=== PATIENT | male | born 1955 | race Two or more races ===

== ENCOUNTER 2019-01-01 09:43 | Emergency (ER) | payer OTHER ==
--- NOTE | 2019-01-01 10:19 | ER Document Report ---
ED Medical Screen (RME) - General Chief Complaint: Hip Pain Stated Complaint: RIGHT HIP PAIN Time Seen by Provider: 01/01/19 10:14 Mode of Arrival: Ambulatory Information source: Patient Notes: Patient is a 63-year-old male presenting to the emergency department with multiple complaints today. Complaint #1 his right hip pain that has been going on for 3 days after lifting a heavy object. This morning he was outside when the pain became so severe that he "blacked out". He was in a standing position out in his driveway when this occurred so he fell from standing position onto the ground. It is unknown how long he was down. Currently patient is alert, oriented, answering all questions appropriately and is complaining of only pain to his right hip. Patient denies any chest pain or shortness of breath. I have greeted and performed a rapid initial assessment of this patient. A comprehensive ED assessment and evaluation of the patient, analysis of test results and completion of the medical decision making process will be conducted by additional ED providers. I have specifically instructed the patient or family members with the patient to immediately return to any nursing staff should anything change in the patient's condition or with their chief complaint. This medical record was dictated with voice recognizing software. There may be grammatical, syntax errors that are unintended. TRAVEL OUTSIDE OF THE [place] IN LAST 30 DAYS: No Past Medical History - Social History Chew tobacco use (# tins/day): No Frequency of alcohol use: None Drug Abuse: None Physical Exam - Vital signs Vitals: Temp Pulse Resp BP Pulse Ox 97.6 F 63 20 140/81 H 94 01/01/19 09:48 01/01/19 09:48 01/01/19 09:48 01/01/19 09:48 01/01/19 09:48 Course - Vital Signs Vital signs: Temp Pulse Resp BP Pulse Ox 97.6 F 63 20 140/81 H 94 01/01/19 09:48 01/01/19 09:48 01/01/19 09:48 01/01/19 09:48 01/01/19 09:48
[2019-01-01] MEDS ORDERED: FENTANYL CITRATE INJ/PF 100 MCG/2 ML AMPUL IV ONE (10:20)
[2019-01-01 10:37] LABS: ABSOLUTE BASOPHILS # (AUTO) 0.1 10^3/uL (0.0-0.2); ABSOLUTE EOSINOPHILS # (AUTO) 0.1 10^3/uL (0.0-0.6); ABSOLUTE LYMPHOCYTES (AUTO) 0.9 10^3/uL (0.5-4.7); ABSOLUTE MONOCYTES (AUTO) 1.3 10^3/uL (0.1-1.4); ABSOLUTE NEUT (AUTO) 9.7 10^3/uL (1.7-8.2); BASOPHILS % (AUTO) 0.5 % (0-2); EOSINOPHILS % (AUTO) 0.5 % (0-6); HEMOGLOBIN 13.2 g/dL (13.5-17.0); LYMPHOCYTES % (AUTO) 7.5 % (13-45); MEAN CORPUSCULAR HEMOGLOBIN 31.7 pg (27.0-33.4); MEAN CORPUSCULAR HGB CONC 33.9 g/dL (32.0-36.0); MEAN CORPUSCULAR VOLUME 94 fl (80-97); PLATELET COUNT 304 10^3/uL (150-450); RED BLOOD COUNT 4.17 10^6/uL (4.35-5.55); RED CELL DISTRIBUTION WIDTH 13.7 % (11.5-14.0); SEGMENTED NEUTROPHILS % (AUTO) 80.5 % (42-78); TOTAL CELLS COUNTED % (AUTO) 100 %
[2019-01-01 10:53] LABS: ALKALINE PHOSPHATASE 48 U/L (38-126); ANION GAP 8 (5-19); ASPARTATE AMINO TRANSFERASE 23 U/L (17-59); BILIRUBIN,DIRECT 0.1 mg/dL (0.0-0.4); BILIRUBIN,TOTAL 0.8 mg/dL (0.2-1.3); BLOOD UREA NITROGEN 11 mg/dL (7-20); CALCIUM 9.2 mg/dL (8.4-10.2); CARBON DIOXIDE 27 mmol/L (22-30); CHLORIDE 101 mmol/L (98-107); GLUCOSE 109 mg/dL (75-110); POTASSIUM 4.4 mmol/L (3.6-5.0); TOTAL PROTEIN 6.6 g/dL (6.3-8.2)
--- NOTE | 2019-01-01 10:57 | RADIOLOGY REPORT (SQ) ---
EXAM DESCRIPTION: HIP RIGHT AP/LATERAL COMPLETED DATE/TIME: 01/01/2019 10:13 am REASON FOR STUDY: severe pain, unable to bear weight COMPARISON: None. NUMBER OF VIEWS: Two views. TECHNIQUE: AP pelvis and additional frog-leg view of the right hip. LIMITATIONS: None. FINDINGS: MINERALIZATION: Normal. RIGHT HIP: No fracture or dislocation. Degenerative changes with small osteophytes. No worrisome luz ne lesions. LEFT HIP: No fracture or dislocation. Degenerative changes with small osteophytes. No worrisome bon e lesions. PUBIS AND ISCHIUM: No fracture. PELVIS: No fracture. SACRUM: No fracture or dislocation. No worrisome bone lesions. LOWER LUMBAR SPINE: No fracture or dislocation. No worrisome bone lesions. Degenerative disc disease . SOFT TISSUES: No findings. OTHER: No other significant finding. IMPRESSION: DEGENERATIVE CHANGES. NO RADIOGRAPHIC EVIDENCE OF ACUTE INJURY. TECHNICAL DOCUMENTATION: JOB ID: [id number] [employer]- All Rights Reserved Reading location - IP/workstation name: [email or web address]
--- NOTE | 2019-01-01 11:27 | RADIOLOGY REPORT (SQ) ---
EXAM DESCRIPTION: CT HEAD WITHOUT COMPLETED DATE/TIME: 01/01/2019 11:18 am REASON FOR STUDY: fall from standing COMPARISON: None. TECHNIQUE: Axial images acquired through the brain without intravenous contrast. Images reviewed wi th bone, brain and subdural windows. Additional sagittal and coronal reconstructions were generated. Images stored on PACS. All CT scanners at this facility use dose modulation, iterative reconstruction, and/or weight based d osing when appropriate to reduce radiation dose to as low as reasonably achievable (ALARA). [facility]: Dose Right [facility]: CareDose [facility]: Dose Right [facility]: Teradose 4D [facility]: Smart Extreme DA RADIATION DOSE: CT Rad equipment meets quality standard of care and radiation dose reduction techniq ues were employed. CTDIvol: 53.2 mGy. DLP: 1097 mGy-cm. mGy. LIMITATIONS: None. FINDINGS: VENTRICLES: Normal size and contour. CEREBRUM: No masses. No hemorrhage. No midline shift. No evidence for acute infarction. Normal gra y/white matter differentiation. No areas of low density in the white matter. CEREBELLUM: No masses. No hemorrhage. No alteration of density. No evidence for acute infarction. EXTRAAXIAL SPACES: No fluid collections. No masses. ORBITS AND GLOBE: No intra- or extraconal masses. Normal contour of globe without masses. CALVARIUM: No fracture. PARANASAL SINUSES: No fluid or mucosal thickening. SOFT TISSUES: No mass or hematoma. OTHER: No other significant finding. IMPRESSION: NORMAL BRAIN CT WITHOUT CONTRAST. EVIDENCE OF ACUTE STROKE: NO. COMMENT: Quality ID # [id number]: Final reports with documentation of one or more dose reduction techniques (e.g., Automated exposure control, adjustment of the mA and/or kV according to patient size, use of iterative reconstruction technique) TECHNICAL DOCUMENTATION: JOB ID: [id number] [employer]- All Rights Reserved Reading location - IP/workstation name: [email or web address]
--- NOTE | 2019-01-01 11:29 | RADIOLOGY REPORT (SQ) ---
EXAM DESCRIPTION: CT CERVICAL SPINE WITHOUT COMPLETED DATE/TIME: 01/01/2019 11:18 am REASON FOR STUDY: fall from standing COMPARISON: None. TECHNIQUE: Axial images acquired through the cervical spine without intravenous contrast. Images re viewed with lung, soft tissue and bone windows. Reconstructed coronal and sagittal MPR images review ed. Images stored on PACS. All CT scanners at this facility use dose modulation, iterative reconstruction, and/or weight based d osing when appropriate to reduce radiation dose to as low as reasonably achievable (ALARA). [facility]: Dose Right [facility]: CareDose [facility]: Dose Right [facility]: Teradose 4D [facility]: [employer] RADIATION DOSE: CT Rad equipment meets quality standard of care and radiation dose reduction techniq ues were employed. CTDIvol: 18.0 mGy. DLP: 358 mGy-cm. mGy. LIMITATIONS: None. FINDINGS: ALIGNMENT: Anatomic. MINERALIZATION: Normal. VERTEBRAL BODIES: No fractures or dislocation. DISCS: Disc spaces are narrowed from C4-C7 with marginal osteophytes. FACETS, LATERAL MASSES, POSTERIOR ELEMENTS: Hypertrophic facet changes seen, left more than right. HARDWARE: None in the spine. VISUALIZED RIBS: No fractures. LUNG APICES AND SOFT TISSUES: No significant or acute findings. OTHER: No other significant finding. IMPRESSION: Degenerative disc disease, spondylosis, and facet arthropathy. No acute finding. TECHNICAL DOCUMENTATION: JOB ID: [id number] Quality ID # [id number]: Final reports with documentation of one or more dose reduction techniques (e.g., Au tomated exposure control, adjustment of the mA and/or kV according to patient size, use of iterative reconstruction technique) 2010 [employer]- All Rights Reserved Reading location - IP/workstation name: [email or web address]
[2019-01-01 11:48] LABS: APPEARANCE,URINE CLEAR; BILIRUBIN,URINE NEGATIVE (NEGATIVE); COLOR,URINE YELLOW; GLUCOSE, URINE NEGATIVE (NEGATIVE); KETONES,URINE 25 mg/dL (NEGATIVE); LEUKOCYTE ESTERASE,URINE NEGATIVE (NEGATIVE); NITRITE,URINE NEGATIVE (NEGATIVE); PROTEIN,URINE NEGATIVE (NEGATIVE)
[2019-01-01 11:51] LABS: URINE SPECIFIC GRAVITY 1.013
[2019-01-01] MEDS ORDERED: KETOROLAC TROMETHAMINE INJ/PF 30 MG/1 ML SDV IV ONE (12:12)
--- NOTE | 2019-01-01 12:17 | ER Document Report ---
ED General - General Chief Complaint: Hip Pain Stated Complaint: RIGHT HIP PAIN Time Seen by Provider: 01/01/19 10:14 Mode of Arrival: Ambulatory Notes: Patient is a 63-year-old male who presents to the emergency department with a chief complaint of right hip pain. He states that he has had his hip pain for the past 2 days. He was moving furniture and states that he ended up having pain at that time. He went to go sit outside to smoke a cigarette and he was found down by his niece. He describes his pain as an aching pain he is able to walk, but feels like it is hard and needs some help. He had trouble getting out of the car earlier today. It was patient has a past medical history of gout, but he states that this pain feels different and does not feel like his gout. He also has a past medical history of a stroke in 2005. He has COPD and hypertension. Denies any fever, shortness of breath, cough, or any other symptoms. TRAVEL OUTSIDE OF THE [place] IN LAST 30 DAYS: No - Related Data Allergies/Adverse Reactions: No Known Allergies Allergy (Unverified 01/01/19 10:21) Past Medical History - General Information source: Patient - Social History Smoking Status: Current Every Day Smoker Chew tobacco use (# tins/day): No Frequency of alcohol use: None Drug Abuse: None Family History: Reviewed & Not Pertinent Patient has suicidal ideation: No Patient has homicidal ideation: No Past Surgical History: Reports: Hx Orthopedic Surgery - right knee Physical Exam - Vital signs Vitals: Temp Pulse Resp BP Pulse Ox 97.6 F 63 20 140/81 H 94 01/01/19 09:48 01/01/19 09:48 01/01/19 09:48 01/01/19 09:48 01/01/19 09:48 - Notes Notes: PHYSICAL EXAMINATION: GENERAL: Appears well, healthy, well-nourished, no acute distress. HEAD: Normocephalic, atraumatic. EYES: PERRL, conjunctiva normal, all extraocular movements intact, sclera nonicteric ENT: Dry mucous membranes. NECK: Supple, no noticeable swelling, redness, rash. Normal range of motion. LUNGS: Equal breath sounds bilaterally and clear to auscultation. No wheezes rales or rhonchi. CARDIOVASCULAR: S1-S2, regular rate, regular rhythm. Radial pulses 2+, normal. ABDOMEN: Normoactive bowel sounds. Soft, nontender, no guarding, no rebound tenderness, and no masses palpated. EXTREMITIES: Decreased range of motion to right hip joint. No edema noted. T darwin right hip joint. NEUROLOGICAL: Moves all extremities upon command. 3/5 strength in RLE, mainly at hip joint. Strength 5/5 in all other extremities. PSYCH: Normal mood, normal affect. SKIN: Warm, dry. No rash, lesions, ulcerations noted. Normal skin turgor. Course - Re-evaluation Re-evalutation: 01/01/19 12:00 CT of the head and cervical spine are unremarkable. No acute intracranial hemorrhage. On the patient's x-ray hip x-ray ordered in triage, the patient has degenerative changes with small osteophytes noted on both hips. This may be the cause of the patient's pain. Patient states that he is still in pain despite receiving 50 mcg of fentanyl in triage. I discussed this case with Dr. Mota and he is recommending a CT of the pelvis to rule out any fracture is not noted on plain films. I asked Dr. Mota is a venous Doppler study of his right lower extremity would be appropriate, and states that since the patient has had pain in his right hip for the past 3 days, his pain is most likely musculoske letal in nature. Hematology shows a slight leukocytosis of 12,000. His hemoglobin is 13.2. He may be chronically anemic. I have no other labs to compare this to. Chemistry is unremarkable and troponin is negative. Patient is denying pain and has a very low suspicion for an acute VA. Urinalysis is unremarkable. 01/01/19 14:[address] of the pelvic bones are unremarkable at this time. The patient will be given meloxicam and Robaxin to help with his symptoms. He has had been on these medications before when he had right shoulder pain. He will also be given crutches to help with walking. Follow-up precautions were given. Verbal discharge instructions were given to the patient. They verbalized understanding. They are stable for discharge. - Vital Signs Vital signs: Temp Pulse Resp BP Pulse Ox 98.4 F 63 17 152/102 H 96 01/01/19 16:50 01/01/19 09:48 01/01/19 16:50 01/01/19 16:50 01/01/19 16:50 - Laboratory Result Diagrams: 01/01/19 10:25 01/01/19 10:25 Laboratory results interpreted by me: 01/01/19 01/01/19 01/01/19 10:25 10:25 11:34 WBC 12.0 H RBC 4.17 L Hgb 13.2 L Lymph % (Auto) 7.5 L Absolute Neuts (auto) 9.7 H Seg Neutrophils % 80.5 H Sodium 135.7 L Urine Ketones 25 H Urine Urobilinogen 2.0 H - EKG Interpretation by Me Additional EKG results interpreted by me: 01/01/19 14:59 Sinus bradycardia. Rate 58. NC 135; QRS 114; QT 464; QTc 456. No ST elevations or depressions noted. Procedures - Immobilization Right Hip Pre-Proc Neuro Vasc Exam: Normal Immobilizer type: Crutches Performed by: RN Post-Proc Neuro Vasc Exam: Normal, Unchanged from pre-exam Alignment checked and good: Yes Discharge - Discharge Clinical Impression: Hip pain Qualifiers: Laterality: bilateral Qualified Code(s): M25.551 - Pain in right hip Condition: Stable Disposition: HOME, SELF-CARE Additional Instructions: You were seen today in the emergency department for right hip pain. Your CT scans were normal. Your x-ray showed that you had some osteophytes. This could be the cause of your pain. Please follow-up with orthopedics when you return to [place]. You are being prescribed meloxicam and Robaxin, medications that you have taken before to help with pain. Please take these as directed. Prescriptions: Meloxicam [Mobic] 7.5 mg PO DAILY #30 tablet Methocarbamol [Robaxin 750 mg Tablet] 750 mg PO BIDP PRN #60 tablet PRN Reason:
--- NOTE | 2019-01-01 13:03 | RADIOLOGY REPORT (SQ) ---
EXAM DESCRIPTION: CT PELVIS WITHOUT COMPLETED DATE/TIME: 01/01/2019 12:53 pm REASON FOR STUDY: hip pain/fall COMPARISON: None. TECHNIQUE: CT scan of the pelvis performed without intravenous or oral contrast. Images reviewed wi th soft tissue and bone windows. Reconstructed coronal and sagittal MPR images reviewed. All images stored on PACS. All CT scanners at this facility use dose modulation, iterative reconstruction, and/or weight based d osing when appropriate to reduce radiation dose to as low as reasonably achievable (ALARA). [facility]: Dose Right [facility]: CareDose [facility]: Dose Right [facility]: Teradose 4D [facility]: Smart [employer] RADIATION DOSE: CT Rad equipment meets quality standard of care and radiation dose reduction techniq ues were employed. CTDIvol: 4.8 mGy. DLP: 158 mGy-cm. mGy. LIMITATIONS: None. FINDINGS: PELVIC BONES: No acute fracture. No worrisome bone lesions. VISUALIZED SPINE: No acute findings. HIP(S): No acute fracture or dislocation. No worrisome bone lesions. PELVIC SOFT TISSUES: No significant findings. EXTRAPELVIC SOFT TISSUES: No significant findings. OTHER: No other significant finding. IMPRESSION: NO ACUTE OR SIGNIFICANT FINDINGS. TECHNICAL DOCUMENTATION: JOB ID: [id number] Quality ID # [id number]: Final reports with documentation of one or more dose reduction techniques (e.g., Au tomated exposure control, adjustment of the mA and/or kV according to patient size, use of iterative reconstruction technique) 2010 [employer]- All Rights Reserved Reading location - IP/workstation name: [email or web address]
--- NOTE | 2019-01-01 13:27 | EKG REPORT ---
SEVERITY:- ABNORMAL ECG - SINUS RHYTHM NONSPECIFIC INTRAVENTRICULAR CONDUCTION DELAY NONSPECIFIC T INVERSIONS ANTERIOR LEADS, NO OLD EKG FOR COMPARISON. : Confirmed by: Kd Billings MD 01-Jan-2019 13:27:13
[2019-01-01] MEDS ORDERED: DEXAMETHASONE SOD PHOS INJ 10 MG/1 ML VIAL IM ONE (16:03)
[2019-01-01 17:01] VITALS: BP 152/102
== END 2019-01-01 16:53 | disposition home or self-care (01) ==
LOC: ER 09:43
DX: M25.551 Pain in right hip (principal); R55 Syncope and collapse; W18.39XA Other fall on same level, initial encounter; Y92.008 Other place in unspecified non-institutional (private) residence as the place of occurrence of the external cause; F17.210 Nicotine dependence, cigarettes, uncomplicated; J44.9 Chronic obstructive pulmonary disease, unspecified; I10 Essential (primary) hypertension; M10.9 Gout, unspecified
CPT/HCPCS: 93005; 99284; 96374; 96375; 36415; 85025; 80053; 81001; 84484; 73502; 70450; 72125; 72192; 93010; J3010; J1885; J1100